=== PATIENT | female | born 1945 | race Caucasian/White ===

== ENCOUNTER 2018-07-26 13:52 | Inpatient (IN) | payer MEDICARE ==
[~2018-07-26] VITALS: Ht 165.1 cm; Wt 70.8 kg
[2018-07-26] MEDS ORDERED: SODIUM CHLORIDE FLUSH 10ML SYR IVF ONE (14:00)
--- NOTE | 2018-07-26 14:10 | NUR ---
pt bib remsa for altered level of consiousness. pt apparently was lowered to the ground by when she become confused. [facility] was called. Per junior, pt on floor with blood glucose 26. iv started in field and remsa gave 250ml d10 iv. pt a&ox when arrived. pt does not know correct date. pt placed in room and placed on bp, cardiac and cont. pulse oximeter. assessment complete. call light in reach.
[2018-07-26] MEDS ORDERED: LISI-167 PO (14:16)
[2018-07-26] MEDS ORDERED: INSU100V11 SQ (14:17)
[2018-07-26] MEDS ORDERED: PLEASE ENTER ALLERGIES MC SCH (14:30)
[2018-07-26] MEDS ORDERED: PLEASE ENTER HEIGHT AND WEIGHT MC SCH (14:30)
[2018-07-26 14:31] LABS: ALANINE AMINOTRANSFERASE 14 U/L (12-78); ALBUMIN 2.9 g/dL (3.4-5.0); ANION GAP 7 mmol/L (5-15); CALCIUM 9.6 mg/dL (8.5-10.1); CHLORIDE 102 mmol/L (98-107); CREATININE 1.17 mg/dL (0.55-1.02)
[2018-07-26 14:33] LABS: ALKALINE PHOSPHATASE 89 U/L (45-117); BILIRUBIN,TOTAL 0.4 mg/dL (0.2-1.0); TOTAL PROTEIN 8.2 g/dL (6.4-8.2)
[2018-07-26 14:41] LABS: BASOPHILS % (AUTO) 0 % (0-1); EOSINOPHILS # (AUTO) 0.01 x10^3/uL (0-0.4); EOSINOPHILS % (AUTO) 0 % (1-7); LYMPHOCYTES # (AUTO) 1.39 x10^3/uL (1-3.4); LYMPHOCYTES % (AUTO) 19 % (22-44); MD SCAN; MEAN CORPUSCULAR HEMOGLOBIN 20.1 pg (27.0-34.8); MEAN CORPUSCULAR VOLUME 67.6 fL (80-100); MEAN PLATELET VOLUME 8.7 fL (7.4-10.4); MONOCYTES # (AUTO) 0.46 x10^3/uL (0.2-0.8); MONOCYTES % (AUTO) 6 % (2-9); NEUTROPHILS # (AUTO) 5.57 x10^3/uL (1.8-6.8); NEUTROPHILS % (AUTO) 75 % (42-75); PLATELET COUNT 613 x10^3/uL (130-400); RED CELL DISTRIBUTION WIDTH 20.8 % (9.6-15.2)
[2018-07-26 14:48] LABS: MEAN CORPUSCULAR HGB CONC 29.8 g/dL (32.4-35.8)
--- NOTE | 2018-07-26 15:07 | NUR ---
urine collected and sent to lab
[2018-07-26 15:09] LABS: CULTURE INDICATED? YES; MICROSCOPIC INDICATED
--- NOTE | 2018-07-26 15:16 | NUR ---
pt sats ra went down to 87%. aware.
[2018-07-26 15:31] LABS: TROPONIN I < 0.015 ng/mL (0.000-0.045)
[2018-07-26] MEDS ORDERED: CEFTRIAXONE 1,000 MG in SODIUM CHLORIDE 0.9% 50 ML IVPB ONE (16:30)
--- NOTE | 2018-07-26 16:59 | NUR ---
BLOOD SUGAR 23. ADMITTING HOSPITALIST AT BEDSIDE. 1 AMP D50 ORDERED AND GIVEN. 4 ATTEMPTS TO START 2ND LINE. PT VERY DROWSY.
[2018-07-26] MEDS ORDERED: ONDANSETRON 2MG/ML, 2ML IVPush PRN (17:00)
[2018-07-26] MEDS ORDERED: GLUCAGON 1 MG IM PRN (17:00)
[2018-07-26] MEDS ORDERED: ONDANSETRON 2MG/ML, 2ML ONE (17:00)
[2018-07-26] MEDS ORDERED: DEXTROSE 4 GM TAB.CHEW PO PRN (17:00)
[2018-07-26] MEDS ORDERED: DEXTROSE 50%, 50ML SYRINGE IVPush PRN (17:00)
[2018-07-26] MEDS ORDERED: SODIUM CHLORIDE FLUSH 10ML SYR IVF PRN (17:00)
[2018-07-26] MEDS ORDERED: ONDANSETRON ODT 4 MG PO PRN (17:00)
[2018-07-26] MEDS: D5%-0.9% NACL 1,000 ML IV SCH (17:01)
--- NOTE | 2018-07-26 17:05 | NUR ---
PT GIVEN ZOFRAN FOR NAUSEA.
--- NOTE | 2018-07-26 17:13 | NUR ---
ZOYA WANTS NEW IV FOR CT
--- NOTE | 2018-07-26 17:15 | NUR ---
BLOOD SUGAR 211
[2018-07-26] MEDS ORDERED: CEFTRIAXONE PMX 1GM/50ML 50 ML ONE (17:29)
--- NOTE | 2018-07-26 17:33 | NUR ---
BLOOD CULTURES DRAWN X 2 AND ANTIBIOTICS HUNG PER MD ORDER.
[2018-07-26 17:43] LABS: HEMOGLOBIN A1C 9.9 % (4.2-6.3)
--- NOTE | 2018-07-26 17:57 | NUR ---
report given to scott shoemaker.
--- NOTE | 2018-07-26 18:07 | NUR ---
BLOOD GLUCOSE 199.
[2018-07-26 18:56] VITALS: BP 154/71
[2018-07-26 19:36] VITALS: BP 151/80
[2018-07-26] MEDS: ENOXAPARIN 40 MG/0.4 ML SQ SCH (20:55)
[2018-07-26] MEDS: NICOTINE 7 MG/24 HR PATCH.TD24 TD SCH (20:55)
[2018-07-26] MEDS: SODIUM CHLORIDE FLUSH 10ML SYR IVF SCH (21:00)
[2018-07-27 01:23] VITALS: BP 151/60
[2018-07-27 03:51] LABS: ALANINE AMINOTRANSFERASE 12 U/L (12-78); ALBUMIN 2.5 g/dL (3.4-5.0); ANION GAP 5 mmol/L (5-15); CALCIUM 8.7 mg/dL (8.5-10.1); CHLORIDE 106 mmol/L (98-107); CREATININE 1.19 mg/dL (0.55-1.02)
[2018-07-27] MEDS: D5%-0.9% NACL 1,000 ML IV SCH ×2 (03:53→11:40)
[2018-07-27 03:54] LABS: ALKALINE PHOSPHATASE 77 U/L (45-117); BILIRUBIN,TOTAL 0.4 mg/dL (0.2-1.0); TOTAL PROTEIN 7.1 g/dL (6.4-8.2)
[2018-07-27 07:29] VITALS: BP 155/77
[2018-07-27] MEDS: LISINOPRIL 10 MG TABLET PO SCH (08:23)
[2018-07-27] MEDS: SODIUM CHLORIDE FLUSH 10ML SYR IVF SCH ×2 (08:24→21:00)
[2018-07-27] MEDS ORDERED: OMNIPAQUE 350 MG/ML, 100ML BOTTLE ONE (11:06)
[2018-07-27 12:20] VITALS: BP 125/63
[2018-07-27] MEDS: CEFTRIAXONE PMX 1GM/50ML 50 ML IV SCH (17:10)
[2018-07-27 19:00] VITALS: BP 149/79
[2018-07-27] MEDS: ENOXAPARIN 40 MG/0.4 ML SQ SCH (20:00)
[2018-07-27] MEDS: NICOTINE 7 MG/24 HR PATCH.TD24 TD SCH (20:00)
[2018-07-28] MEDS: D5%-0.9% NACL 1,000 ML IV SCH ×2 (00:37→13:42)
[2018-07-28 02:44] VITALS: BP 138/77
[2018-07-28 08:01] LABS: ANION GAP 4 mmol/L (5-15); CALCIUM 8.6 mg/dL (8.5-10.1); CHLORIDE 109 mmol/L (98-107); CREATININE 1.08 mg/dL (0.55-1.02)
[2018-07-28 08:07] LABS: MEAN CORPUSCULAR HEMOGLOBIN 19.9 pg (27.0-34.8); MEAN CORPUSCULAR VOLUME 67.5 fL (80-100); MEAN PLATELET VOLUME 8.5 fL (7.4-10.4); PLATELET COUNT 463 x10^3/uL (130-400); RED BLOOD COUNT 4.75 x10^6/uL (3.82-5.3); RED CELL DISTRIBUTION WIDTH 20.9 % (9.6-15.2)
[2018-07-28 08:31] LABS: MD MORPH REVIEW ONLY
[2018-07-28 08:32] LABS: <PLATELET ESTIMATE> INCREASED; BASOPHILS % (AUTO) 0 % (0-1); EOSINOPHILS # (AUTO) 0.08 x10^3/uL (0-0.4); EOSINOPHILS % (AUTO) 1 % (1-7); LYMPHOCYTES # (AUTO) 2.09 x10^3/uL (1-3.4); LYMPHOCYTES % (AUTO) 28 % (22-44); MONOCYTES # (AUTO) 0.65 x10^3/uL (0.2-0.8); MONOCYTES % (AUTO) 9 % (2-9); NEUTROPHILS # (AUTO) 4.75 x10^3/uL (1.8-6.8); NEUTROPHILS % (AUTO) 63 % (42-75)
[2018-07-28 08:33] LABS: ANISOCYTOSIS 2+; HYPOCHROMIA 2+; LARGE PLATELETS 1+; MICROCYTOSIS 2+; POLYCHROMASIA 1+
[2018-07-28 08:34] LABS: OVALOCYTES 1+
[2018-07-28 08:35] LABS: BASOPHILS # (AUTO) 0.03 x10^3/uL (0-0.1)
[2018-07-28 08:37] LABS: MEAN CORPUSCULAR HGB CONC 29.7 g/dL (32.4-35.8)
[2018-07-28] MEDS: LISINOPRIL 10 MG TABLET PO SCH (09:00)
[2018-07-28] MEDS: SODIUM CHLORIDE FLUSH 10ML SYR IVF SCH ×2 (09:00→20:10)
[2018-07-28 09:38] VITALS: BP 150/61
[2018-07-28 12:29] VITALS: BP 124/70
[2018-07-28] MEDS: CEFTRIAXONE PMX 1GM/50ML 50 ML IV SCH (17:28)
[2018-07-28 18:02] LABS: MICROSCOPIC INDICATED
[2018-07-28 18:28] LABS: CULTURE INDICATED? NO
[2018-07-28 19:47] VITALS: BP 112/51
[2018-07-28] MEDS: NICOTINE 7 MG/24 HR PATCH.TD24 TD SCH (20:00)
[2018-07-28] MEDS: ENOXAPARIN 40 MG/0.4 ML SQ SCH (20:00)
[2018-07-29 02:02] VITALS: BP 149/67
[2018-07-29] MEDS: D5%-0.9% NACL 1,000 ML IV SCH (02:40)
[2018-07-29 06:14] LABS: CHLORIDE 107 mmol/L (98-107)
[2018-07-29 06:19] LABS: ANION GAP 5 mmol/L (5-15); CALCIUM 8.8 mg/dL (8.5-10.1); CREATININE 1.16 mg/dL (0.55-1.02)
[2018-07-29 08:45] VITALS: BP 170/80
[2018-07-29] MEDS: SODIUM CHLORIDE FLUSH 10ML SYR IVF SCH (08:54)
[2018-07-29] MEDS: LISINOPRIL 10 MG TABLET PO SCH (08:54)
[2018-07-29] MEDS ORDERED: CEFD300C37 PO (09:02)
[2018-07-29 13:08] VITALS: BP 147/79
== END 2018-07-29 14:30 | disposition home health service (06) | DRG 637 ==
LOC: ED 15:49 → EDIP 16:35 → 4NOR 18:40 → DCLOUNGE 07-29 14:17
PROVIDERS: ADMIT Internal Medicine; ATTEND Internal Medicine
DX: E11.649 Type 2 diabetes mellitus with hypoglycemia without coma (principal); J96.01 Acute respiratory failure with hypoxia; G93.41 Metabolic encephalopathy; J44.0 Chronic obstructive pulmonary disease with (acute) lower respiratory infection; R59.9 Enlarged lymph nodes, unspecified; F17.200 Nicotine dependence, unspecified, uncomplicated; D50.9 Iron deficiency anemia, unspecified; E78.5 Hyperlipidemia, unspecified; F42.9 Obsessive-compulsive disorder, unspecified; I10 Essential (primary) hypertension; N30.90 Cystitis, unspecified without hematuria; R79.1 Abnormal coagulation profile; Z79.4 Long term (current) use of insulin; Z83.3 Family history of diabetes mellitus; Z88.0 Allergy status to penicillin
CPT/HCPCS: 36415; 71045; 71275; 80048; 80053; 81001; 82962; 83036; 83605; 83880; 84145; 84484; 85025; 85379; 87040; 87086; 93005; 96361; 96365; 96375; 99285; G0378; J0696; J2405; J7042; Q9967